=== PATIENT | female | born 1975 ===

== ENCOUNTER 2024-12-04 06:24 | Day surgery (SDC) | payer BC, SELFPAY | END 2024-12-04 12:11 | disposition home or self-care (01) | LOC: GI 06:24 | PROVIDERS: ATTENDING PHYSICIAN Internal Medicine; FAMILY PHYSICIAN Family Medicine | DX: Z12.11 Encounter for screening for malignant neoplasm of colon (principal); D12.3 Benign neoplasm of transverse colon | CPT/HCPCS: 45385; 45380; 88305 ==